=== PATIENT | female | born 1975 | race Caucasian/White ===

== ENCOUNTER → 2023-10-17 08:54 | Outpatient (REF) | payer OTHER, SELFPAY | LOC: WDC 08:54 | PROVIDERS: ATTENDING PHYSICIAN Nurse Practitioner Family; FAMILY PHYSICIAN Family Medicine | DX: Z12.31 Encounter for screening mammogram for malignant neoplasm of breast (principal) | CPT/HCPCS: 77063; 77067 ==

== ENCOUNTER → 2024-10-17 12:40 | Outpatient (REF) | payer OTHER, SELFPAY | LOC: WDC 12:40 | PROVIDERS: ATTENDING PHYSICIAN Nurse Practitioner Family; FAMILY PHYSICIAN Family Medicine | DX: Z12.31 Encounter for screening mammogram for malignant neoplasm of breast (principal) | CPT/HCPCS: 77063; 77067 ==

== ENCOUNTER 2025-05-07 06:23 | Day surgery (SDC) | payer OTHER, SELFPAY | END 2025-05-07 12:16 | disposition home or self-care (01) | LOC: GI 06:23 | PROVIDERS: ATTENDING PHYSICIAN Internal Medicine Gastroenterology | DX: Z12.11 Encounter for screening for malignant neoplasm of colon (principal); Z80.0 Family history of malignant neoplasm of digestive organs; K57.30 Diverticulosis of large intestine without perforation or abscess without bleeding; K64.8 Other hemorrhoids | CPT/HCPCS: G0105 ==

== ENCOUNTER 2025-06-05 06:40 | Day surgery (SDC) | payer OTHER, SELFPAY ==
[2025-05-26 14:03] VITALS: BMI 39.1
[2025-06-05 11:30] VITALS: BP 130/91; BMI 39.1
[2025-06-05] MEDS: TYLENOL 1000 MG PO (11:44)
[2025-06-05] MEDS: NORMOSOL-R/PLASMALYTE-A 1000 IV (11:45)
[2025-06-05 13:25] VITALS: BP 125/63
[2025-06-05 13:30] VITALS: BP 123/66
[2025-06-05 13:45] VITALS: BP 122/74
[2025-06-05 14:00] VITALS: BP 122/67
[2025-06-05 14:15] VITALS: BP 132/69
== END 2025-06-05 14:36 | disposition home or self-care (01) ==
LOC: SDS 06:40
PROVIDERS: ATTENDING PHYSICIAN Surgery; FAMILY PHYSICIAN Family Medicine
DX: K64.8 Other hemorrhoids (principal)
CPT/HCPCS: 46255; 88304; 93005